=== PATIENT | female | born 1950 | race Caucasian/White ===

== ENCOUNTER → 2024-06-14 11:04 | Outpatient (REF) | payer MEDICARE, SELFPAY | LOC: WDC 11:04 | PROVIDERS: ATTENDING PHYSICIAN Obstetrics & Gynecology; FAMILY PHYSICIAN Family Medicine | DX: Z12.31 Encounter for screening mammogram for malignant neoplasm of breast (principal) | CPT/HCPCS: 77063; 77067 ==

== ENCOUNTER → 2025-01-12 08:38 | Outpatient (REF) | payer MEDICARE, SELFPAY | LOC: EMG 08:38 | PROVIDERS: ATTENDING PHYSICIAN Orthopaedic Surgery; FAMILY PHYSICIAN Family Medicine | DX: R20.0 Anesthesia of skin (principal); G56.03 Carpal tunnel syndrome, bilateral upper limbs | CPT/HCPCS: 95886; 95911 ==

== ENCOUNTER → 2025-06-23 13:12 | Outpatient (REF) | payer MEDICARE, SELFPAY | LOC: WDC 13:12 | PROVIDERS: ATTENDING PHYSICIAN Obstetrics & Gynecology; FAMILY PHYSICIAN Family Medicine | DX: Z12.31 Encounter for screening mammogram for malignant neoplasm of breast (principal) | CPT/HCPCS: 77063; 77067 ==